=== PATIENT | female | born 1945 | race Caucasian/White ===

== ENCOUNTER → 2017-08-27 | Outpatient (CLI) | payer MEDICARE, OTHER ==
--- NOTE | 2017-08-28 11:48 | MM ---
Reason for exam: screening (asymptomatic). Last mammogram was performed 1 year and 4 months ago. History: Patient is postmenopausal. Family history of breast cancer in mother at age 75. Benign MG stereo VAD BX RT of the right breast, May 22, 2016. Benign left mammotome panel of the left breast, April 07, 2008. Benign excisional biopsy of the right breast, 1968. Took hormonal contraceptives for 3 years beginning at age 22. Physical Findings: A clinical breast exam by your physician is recommended on an annual basis and results should be correlated with mammographic findings. MG 3D Screening Mammo W/Cad Bilateral CC and MLO view(s) were taken. Prior study comparison: May 07, 2016, right breast MG 3d work up w/cad RT. April 27, 2016, bilateral MG 3d screening mammo w/cad. The breast tissue is heterogeneously dense. This may lower the sensitivity of mammography. Stable benign calcifications. No significant changes when compared with prior studies. ASSESSMENT: Benign, BI-RAD 2 RECOMMENDATION: Routine screening mammogram of both breasts in 1 year.
== END | disposition home or self-care (01) ==
LOC: RADMAMWWP 13:58
PROVIDERS: ATTEND Family Medicine
DX: Z12.31 Encounter for screening mammogram for malignant neoplasm of breast (principal)
CPT/HCPCS: 77063; 77067

== ENCOUNTER 2020-05-06 05:53 | Day surgery (SDC) | payer MEDICARE ==
[2020-05-05 13:21] VITALS: BMI 32.5
[~2020-05-06 05:53] MED LIST: LACTATED RINGERS 1,000 ML IV SCH
[2020-05-06 06:32] VITALS: RESP 16; TEMP 97.1
[2020-05-06] MEDS ORDERED: LIDOCAINE 1% (10MG/ML) FOR IV START SQ ONE (06:33)
[2020-05-06 06:37] LABS: Glucose,Whole Blood 206 mg/dL (75-99)
[2020-05-06] MEDS ORDERED: PROPOFOL 10 MG/ML 20 ML VIAL IV ONE (07:04)
[2020-05-06] MEDS ORDERED: IV FLUID CONTINUATION 1,000 ML IV ONE (07:25)
[2020-05-06 07:43] VITALS: BP 125/68; PULSE 66
--- NOTE | 2020-05-06 07:51 | PCN ---
PROCEDURE NOTE DATE OF PROCEDURE: 05/06/2020. PROCEDURE: Bone marrow aspirate and biopsy. ANESTHESIA: Local with IV systemic sedation. PREOPERATIVE DIAGNOSIS: Polycythemia. POSTOPERATIVE DIAGNOSIS: Polycythemia. DETAILS: Utilizing sterile technique, the skin overlying the right iliac crest was prepared with Betadine and alcohol. After adequate sterile draping and local anesthesia with 1% lidocaine and IV systemic sedation, a size 11, 4 inch Jamshidi needle was utilized to access the periosteum with ease. A total of 14 mL of aspirate and 2 cm bone core biopsies were obtained. The patient tolerated the procedure very well. There was no immediate procedure related complication. Total blood loss less than 1 mL. RESULTS: Pending. MMODL / IJN: [id number] /
[2020-05-06 07:52] LABS: HCT 52.9 % (34.0-46.0); HGB 17.1 gm/dL (11.4-16.0); MCH 28.8 pg (25.0-35.0); MCHC 32.2 g/dL (31.0-37.0); MCV 89.4 fL (80.0-100.0); Mean Platelet Volume 8.5; Platelet Count 683 k/uL (150-450); RBC 5.92 m/uL (3.80-5.40); RDW 14.1 % (11.5-15.5); Reticulocyte % 1.6 % (0.5-2.0); WBC 8.6 k/uL (3.8-10.6)
[2020-05-06 12:24] LABS: Band Neutrophils % 1 %; Eosinophils # (M) 0.17 k/uL (0-0.7); Monocytes # (M) 0.43 k/uL (0-1.0); Myelocytes # (M) 0.09 k/uL (0); Myelocytes % 1 %; Nucleated Red Blood Cells 0 /100 WBC (0-0)
[2020-05-06 12:26] LABS: Lymphocytes # (M) 1.81 k/uL (1.0-4.8); Neutrophils % (M) 72 %; Total Cells Counted 200
== END 2020-05-06 08:03 | disposition home or self-care (01) ==
LOC: OR 05:53
PROVIDERS: ATTEND Internal Medicine Hematology & Oncology
DX: D45 Polycythemia vera (principal); E11.9 Type 2 diabetes mellitus without complications; I10 Essential (primary) hypertension; E78.5 Hyperlipidemia, unspecified; K21.9 Gastro-esophageal reflux disease without esophagitis; Z88.0 Allergy status to penicillin; Z88.5 Allergy status to narcotic agent; Z79.4 Long term (current) use of insulin; Z86.73 Personal history of transient ischemic attack (TIA), and cerebral infarction without residual deficits; Z79.899 Other long term (current) drug therapy; Z79.82 Long term (current) use of aspirin
CPT/HCPCS: 38222; 85025; 85045; J2704